=== PATIENT | female | born 1970 | race Caucasian/White ===

== ENCOUNTER → 2017-01-06 | Outpatient (CLI) | payer BC ==
[2017-01-06 13:52] LABS: ALBUMIN 3.6 GM/DL (3.2-5.2); ALBUMIN/GLOBULIN RATIO 1.03 (1.00-1.93); ALKALINE PHOSPHATASE 97 U/L (45-117); ALT/SGPT 20 U/L (12-78); ANION GAP 9 MEQ/L (8-16); AST/SGOT 8 U/L (15-37); BILIRUBIN,TOTAL 0.4 MG/DL (0.2-1.0); BLOOD UREA NITROGEN 12 MG/DL (7-18); CALCIUM LEVEL 9.3 MG/DL (8.5-10.1); CARBON DIOXIDE LEVEL 24 MEQ/L (21-32); CHLORIDE LEVEL 108 MEQ/L (98-107); CHOLESTEROL LEVEL 185 MG/DL (<200); CREATININE FOR GFR 0.79 MG/DL (0.55-1.02); FREE T4 0.99 NG/DL (0.76-1.46); GLOMERULAR FILTRATION RATE > 60.0 (>58); GLUCOSE, FASTING 89 MG/DL (70-105); POTASSIUM SERUM 4.6 MEQ/L (3.5-5.1); SODIUM LEVEL 141 MEQ/L (136-145); TOTAL PROTEIN 7.1 GM/DL (6.4-8.2); TRIGLYCERIDES LEVEL 125 MG/DL (<150)
== END ==
LOC: M SMT 08:12
PROVIDERS: ATTEND Physician Assistant
DX: E78.2 Mixed hyperlipidemia (principal)

== ENCOUNTER → 2017-01-13 | Outpatient (CLI) | payer BC ==
[2017-01-15 00:07] LABS: Lyme Disease IgG/IgM Antibodie <0.91 ISR (0.00-0.90); Lyme Disease IgM Ab Quantitati <0.80 index (0.00-0.79)
== END ==
LOC: M SMT 08:36
PROVIDERS: ATTEND Physician Assistant
DX: M25.569 Pain in unspecified knee (principal); F41.1 Generalized anxiety disorder

== ENCOUNTER → 2018-04-20 | Outpatient (CLI) | payer BC | LOC: M WHC 08:04 | DX: Z12.31 Encounter for screening mammogram for malignant neoplasm of breast (principal); Z92.0 Personal history of contraception; Z80.3 Family history of malignant neoplasm of breast; Z80.0 Family history of malignant neoplasm of digestive organs | CPT/HCPCS: 77067 ==

== ENCOUNTER → 2018-04-26 | Outpatient (CLI) | payer BC ==
[2018-04-26 13:39] LABS: ALBUMIN 3.6 GM/DL (3.2-5.2); ALBUMIN/GLOBULIN RATIO 1.09 (1.00-1.93); ALKALINE PHOSPHATASE 112 U/L (45-117); ALT/SGPT 17 U/L (12-78); ANION GAP 9 MEQ/L (8-16); AST/SGOT 11 U/L (7-37); BILIRUBIN,TOTAL 0.4 MG/DL (0.2-1.0); BLOOD UREA NITROGEN 9 MG/DL (7-18); C REACTIVE PROTEIN QUANTITATIV 1.04 MG/DL (0.00-0.30); CALCIUM LEVEL 9.3 MG/DL (8.5-10.1); CARBON DIOXIDE LEVEL 26 MEQ/L (21-32); CHLORIDE LEVEL 106 MEQ/L (98-107); CREATININE FOR GFR 0.62 MG/DL (0.55-1.30); GLOMERULAR FILTRATION RATE > 60.0 (>58); GLUCOSE, FASTING 87 MG/DL (70-100); POTASSIUM SERUM 4.1 MEQ/L (3.5-5.1); RHEUMATOID FACTOR QUANT < 10.0 IU/ML (<15.0); SODIUM LEVEL 141 MEQ/L (136-145); TOTAL PROTEIN 6.9 GM/DL (6.4-8.2)
[2018-04-26 13:44] LABS: ERYTHROCYTE SEDIMENTATION RATE 33 mm/hr (0-20)
[2018-04-26 16:06] LABS: FOLATE > 24.0 NG/ML; VITAMIN B12 LEVEL 364 PG/ML
[2018-04-29 00:08] LABS: ANTINUCLEAR ANTIBODIES DIRECT Negative (Negative); Lyme Disease IgG/IgM Antibodie <0.91 ISR (0.00-0.90); Lyme Disease IgM Ab Quantitati <0.80 index (0.00-0.79)
[2018-04-29 00:08] LABS: CYCLIC CITRULLINATED PEPTIDE 5 units (0-19)
== END ==
LOC: M SMT 10:20
DX: M25.50 Pain in unspecified joint (principal)
CPT/HCPCS: 82746

== ENCOUNTER → 2018-07-22 | Outpatient (REF) | payer BC | LOC: M LAB REF 17:15 | PROVIDERS: ATTEND Physician Assistant | DX: N39.0 Urinary tract infection, site not specified (principal) ==

== ENCOUNTER → 2018-11-15 | Outpatient (CLI) | payer BC ==
[2018-11-15 13:41] LABS: ALBUMIN 3.6 GM/DL (3.2-5.2); ALT/SGPT 24 U/L (12-78); BILIRUBIN,TOTAL 0.4 MG/DL (0.2-1.0); BLOOD UREA NITROGEN 11 MG/DL (7-18); CALCIUM LEVEL 9.3 MG/DL (8.5-10.1); CARBON DIOXIDE LEVEL 29 MEQ/L (21-32); CHLORIDE LEVEL 107 MEQ/L (98-107); CHOLESTEROL LEVEL 191 MG/DL (<200); CHOLESTEROL RISK RATIO 4.547 (<5); CREATININE FOR GFR 0.63 MG/DL (0.55-1.30); FREE T4 0.95 NG/DL (0.76-1.46); GLOMERULAR FILTRATION RATE > 60.0 (>58); GLUCOSE, FASTING 94 MG/DL (70-100); HDL CHOLESTEROL 42 MG/DL (>40); LDL CHOLESTEROL 127 MG/DL (<100); NON-HDL-C 149 MG/DL; POTASSIUM SERUM 4.7 MEQ/L (3.5-5.1); SODIUM LEVEL 141 MEQ/L (136-145); TRIGLYCERIDES LEVEL 110 MG/DL (<150)
== END ==
LOC: M SMT 07:58
PROVIDERS: ATTEND Physician Assistant
DX: E66.8 Other obesity (principal)

== ENCOUNTER → 2018-11-30 | Outpatient (CLI) | payer BC ==
--- NOTE | 2018-11-30 15:53 | REP ---
Lumbar spine five views: Comparison is 02/18/2005. 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 Vertebral body heights, interspacing alignment are unremarkable. The facets and pedicles are unremarkable. The sacroiliac articulations are unremarkable. The the There is no spondylolysis. There is no spondylolisthesis. 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 Otherwise, negative lumbar spine. Electronically Signed by Domo Pulliam MD 11/30/2018 03:45 P
--- NOTE | 2018-11-30 18:03 | REP ---
Bilateral hip series: Four views. History: Bilateral hip pain. Findings: AP and frog-leg views of each hip are presented. Femoral heads are smooth and rounded and hip joint spaces are preserved. Periarticular soft tissues are unremarkable. No erosive changes seen. Impression: No abnormality noted. Electronically Signed by Deo Alexis MD 12/01/2018 07:54 A
--- NOTE | 2018-11-30 18:11 | REP ---
SI joint series: SI joint series: Five views. History: Pain. Findings: Sacroiliac joints are intact bilaterally. No erosive change or sclerosis is seen. No spur formation is seen. An IUD is noted. The visualized bony pelvic ring is intact. Impression: Negative SI joint radiographs. Electronically Signed by Deo Alexis MD 12/01/2018 07:55 A
== END ==
LOC: M WUC 14:19
PROVIDERS: ATTEND Internal Medicine Rheumatology
DX: Q06.9 Congenital malformation of spinal cord, unspecified (principal); M54.5 Low back pain; M25.559 Pain in unspecified hip

== ENCOUNTER → 2019-01-26 | Outpatient (CLI) | payer BC ==
--- NOTE | 2019-01-26 15:14 | REP ---
HISTORY: Slip, trip, stumble with trauma to the fifth digit. Four views of the right foot show a fracture of the mid diaphysis of the proximal phalanx of the fifth digit. There are no additional fractures. IMPRESSION: Fracture fifth digit proximal phalanx. Electronically Signed by Michael Alejo DO 01/27/2019 03:19 P
== END ==
LOC: M SMT 10:42
PROVIDERS: ATTEND Family Medicine
DX: S92.511A Displaced fracture of proximal phalanx of right lesser toe(s), initial encounter for closed fracture (principal); W18.40XA Slipping, tripping and stumbling without falling, unspecified, initial encounter; Y92.9 Unspecified place or not applicable; Y93.9 Activity, unspecified

== ENCOUNTER → 2019-04-22 | Outpatient (REF) | payer BC ==
[2019-04-26 14:27] LABS: HPV HYBRID CAPTURE II Negative (Negative)
== END ==
LOC: M SFHCWAGY 08:42
PROVIDERS: ATTEND Nurse Practitioner Family
DX: Z12.4 Encounter for screening for malignant neoplasm of cervix (principal)
CPT/HCPCS: 87624; G0123

== ENCOUNTER → 2019-04-22 | Outpatient (CLI) | payer BC ==
--- NOTE | 2019-04-22 10:12 | REPMRS ---
Patient History The patient states she had a clinical breast exam in 04/2019. Family history of breast cancer under age 50 and colorectal cancer at age 50 or over in paternal grandmother, prostate cancer at age 50 or over in paternal grandfather. Taking hormonal contraceptives for 9 years. Digital Woman Screen Mammo: April 22, 2019 - Exam #: [id number] Bilateral CC and MLO view(s) were taken. Technologist: Laura Corral, Technologist Prior study comparison: April 20, 2018, bilateral digital woman screen mammo performed at [facility]. April 17, 2017, digital woman screen mammo performed at [facility]. April 10, 2016, digital woman screen mammo performed at [facility]. FINDINGS: The breast tissue is heterogeneously dense. This may lower the sensitivity of mammography. There is a moderate amount of heterogeneously dense fibroglandular tissue which is fairly symmetric. There is no interval development of dominant mass, architectural distortion, or grouped microcalcification typical of malignancy. There has been no change in the appearance of the mammogram from the prior studies. 3-D tomosynthesis shows no additional findings. Assessment: BI-RADS/ACR category 1 mammogram. Negative Mammogram. Recommendation Routine screening mammogram of both breasts in 1 year (for women over age 40). This patient's Lifetime Breast Cancer RIsk is estimated at 14.5 %. This mammogram was interpreted with the aid of an FDA-approved computer-aided dectection system. Electronically Signed By: Christian Alexis MD 04/22/19 [id number]
== END ==
LOC: M WHC 08:10
PROVIDERS: ATTEND Nurse Practitioner Family
DX: Z12.31 Encounter for screening mammogram for malignant neoplasm of breast (principal); Z79.3 Long term (current) use of hormonal contraceptives

== ENCOUNTER 2019-10-24 09:02 | Day surgery (SDC) | payer BC ==
[~2019-10-24] VITALS: Ht 170.2 cm; Wt 95.4 kg
[2019-10-24] MEDS ORDERED: DULO1CAP6 PO (09:08)
[2019-10-24] MEDS ORDERED: ADDE10CA3 PO (09:09)
[2019-10-24] MEDS ORDERED: NS 1,000 ML IV ONE ×2 (09:30→12:30)
[2019-10-24 09:49] LABS: BASO # 0.1 10^3/uL (0.0-0.2); BASO % 0.5 % (0.0-1.0); EOS # 0.1 10^3/uL (0.0-0.5); EOS % 0.7 % (0.0-3.0); HEMATOCRIT 41.7 % (36.0-47.0); HEMOGLOBIN 13.7 g/dl (12.0-15.5); LYMPH # 1.8 10^3/uL (1.5-5.0); LYMPH % 9.9 % (24.0-44.0); MEAN CORPUSCULAR HEMOGLOBIN 30.2 pg (27.0-33.0); MEAN CORPUSCULAR HGB CONC 32.9 g/dl (32.0-36.5); MEAN CORPUSCULAR VOLUME 92.1 fl (80.0-96.0); MONO # 0.8 10^3/uL (0.0-0.8); MONO % 4.4 % (0.0-5.0); NEUTROPHILS # 15.4 10^3/uL (1.5-8.5); NEUTROPHILS % 83.7 % (36.0-66.0); PLATELET COUNT, AUTOMATED 409 10^3/uL (150-450); RED BLOOD COUNT 4.53 10^6/uL (4.00-5.40); WHITE BLOOD COUNT 18.4 10^3/uL (4.0-10.0)
[2019-10-24] MEDS ORDERED: ONDANSETRON 4MG/2ML VIAL IV ONE (10:00)
[2019-10-24] MEDS ORDERED: KETOROLAC 30 MG/ML 1ML VIAL IV ONE (10:00)
[2019-10-24 10:13] LABS: ALBUMIN 3.5 GM/DL (3.2-5.2); BILIRUBIN,DIRECT 0.1 MG/DL (0.0-0.2); BILIRUBIN,TOTAL 0.4 MG/DL (0.2-1.0); TOTAL PROTEIN 6.9 GM/DL (6.4-8.2)
[2019-10-24] MEDS ORDERED: FAMO1TAB25 PO (10:56)
[2019-10-24] MEDS ORDERED: MIRE1IUD IU (10:56)
[2019-10-24] MEDS ORDERED: SUMA50TA2 PO (10:56)
[2019-10-24] MEDS ORDERED: PIPERACILLIN/TAZOBACTAM SOD 3.375 GM in D5W MINI-BAG PLUS 50 ML IV ONE (11:00)
--- NOTE | 2019-10-24 11:18 | REP ---
RIGHT UPPER QUADRANT ULTRASOUND: Real-time sonographic evaluation of the right upper quadrant performed. Multiple gallstones are seen in the gallbladder. There is a stone in the neck of the gallbladder. Patient is tender at that location. There is gallbladder wall thickening and edema, thickness measures 8 mm. No free fluid is seen. Common bile duct is upper limits of normal at 7 mm. Liver and pancreas are grossly unremarkable, not optimally seen due to overlying bowel gas. Right kidney demonstrates no hydronephrosis with normal size 11.0 cm in length. There is a cyst in the upper pole 1.3 cm in diameter. IMPRESSION: Gallstones in the gallbladder with one apparently lodged in the neck of the gallbladder. There is diffuse gallbladder wall thickening and edema. There is no free fluid. Common bile duct is upper limits of normal at 7 mm. The patient is tender at the site of the gallbladder with transducer pressure. I suspect the findings represent cholecystitis. Electronically Signed by Domo Hess MD 10/24/2019 12:18 P
[2019-10-24 13:05] VITALS: BP 134/82
[2019-10-24] MEDS ORDERED: MORPHINE 2 MG/ML 1ML VIAL (J2270) IV PRN (13:30)
[2019-10-24] MEDS ORDERED: KETOROLAC 30 MG/ML 1ML VIAL IV PRN (13:30)
[2019-10-24] MEDS ORDERED: ONDANSETRON 4MG/2ML VIAL IV PRN ×2 (13:30→20:30)
[2019-10-24] MEDS: LR 1,000 ML IV SCH ×2 (14:46→22:05)
[2019-10-24] MEDS ORDERED: fentaNYL 250 MCG/5 ML INJECTION (J3010) As Ordered ONE (15:32)
[2019-10-24] MEDS ORDERED: MIDAZOLAM INJ 2MG/2ML VIAL (J2250 PER 1MG) As Ordered ONE (15:32)
[2019-10-24] MEDS ORDERED: KETOROLAC 60 MG/2 ML VIAL As Ordered ONE (15:33)
[2019-10-24] MEDS ORDERED: propofoL 200 MG/20 ML VIAL As Ordered ONE (15:33)
[2019-10-24] MEDS ORDERED: dexameTHASONE 4 MG/ML 1ML VIAL (J1100 PER 1MG) As Ordered ONE (15:33)
[2019-10-24] MEDS ORDERED: ROCURONIUM BROMIDE 50 MG/5 ML VIAL As Ordered ONE (15:33)
[2019-10-24] MEDS ORDERED: SUGAMMADEX SODIUM 500 MG/5 ML VIAL (BRIDION) As Ordered ONE (15:33)
[2019-10-24] MEDS ORDERED: LIDOCAINE 2% 100MG/5ML SDV (FOR ANES.) As Ordered ONE (15:33)
[2019-10-24] MEDS ORDERED: ONDANSETRON 4MG/2ML VIAL As Ordered ONE (15:33)
[2019-10-24] MEDS: PIPERACILLIN/TAZOBACTAM SOD 3.375 GM in D5W MINI-BAG PLUS 50 ML IV SCH ×2 (16:07→23:50)
--- NOTE | 2019-10-24 16:46 | ECGEPIP ---
[facility] - ED Test Date: 2019-10-24 Pat Name: MARCELO LEDESMA Department: Room: - Gender: Female Corporate Financial Analyst: JCheo : 1970 Requested By: RAY Ribeiro PA-C Order Number: [id number] Reading MD: Lorrie Toscano Measurements Intervals Raymond Rate: 55 P: 18 AL: 197 QRS: 14 QRSD: 101 T: 51 QT: 432 QTc: 416 Interpretive Statements SINUS BRADYCARDIA NO PRIOR Electronically Signed on 10-24-2019 16:46:03 EDT by Lorrie Toscano
[2019-10-24] MEDS ORDERED: BUPIVACAINE HCL 0.25% 30ML VIAL As Ordered ONE (17:35)
[2019-10-24] MEDS ORDERED: PHENYLephrine HCL 500 MCG/5 ML (100MCG/ML) SYRINGE (J2370) As Ordered ONE (18:08)
[2019-10-24] MEDS ORDERED: ePHEDrine SULFATE 25 MG/5 ML(5MG/ML) SYRINGE As Ordered ONE ×2 (18:08→19:56)
[2019-10-24] MEDS ORDERED: ACETAMINOPHEN 1000MG 100ML IV BTL (OFIRMEV) (J0131 PER 10MG) As Ordered ONE (18:15)
[2019-10-24] MEDS ORDERED: fentaNYL 100 MCG/2 ML INJECTION (J3010) IV PRN (20:30)
[2019-10-24] MEDS ORDERED: PERCOCET 5MG/325MG TAB PO PRN (20:30)
[2019-10-24] MEDS ORDERED: LR 1,000 ML IV SCH (20:30)
[2019-10-24] MEDS ORDERED: NORCO, ANEXSIA 5/325MG TABLET (HYDROcodone/ACETAMINOPHEN) PO PRN (20:45)
[2019-10-24] MEDS ORDERED: FAMOTIDINE 20 MG TAB PO SCH (21:00)
[2019-10-24 21:15] VITALS: BP 111/70
[2019-10-24 21:45] VITALS: BP 107/68
[2019-10-24 22:45] VITALS: BP 96/64
[2019-10-24 23:45] VITALS: BP 95/62
[2019-10-25 00:45] VITALS: BP 98/62
[2019-10-25 01:45] VITALS: BP 94/61
[2019-10-25] MEDS: PIPERACILLIN/TAZOBACTAM SOD 3.375 GM in D5W MINI-BAG PLUS 50 ML IV SCH ×2 (05:45→10:07)
[2019-10-25 06:00] VITALS: BP 95/60
[2019-10-25 06:23] LABS: BASO # 0.1 10^3/uL (0.0-0.2); BASO % 0.5 % (0.0-1.0); EOS # 0.3 10^3/uL (0.0-0.5); EOS % 3.1 % (0.0-3.0); HEMATOCRIT 35.4 % (36.0-47.0); LYMPH # 2.2 10^3/uL (1.5-5.0); LYMPH % 19.5 % (24.0-44.0); MEAN CORPUSCULAR HEMOGLOBIN 30.3 pg (27.0-33.0); MEAN CORPUSCULAR HGB CONC 31.9 g/dl (32.0-36.5); MEAN CORPUSCULAR VOLUME 94.9 fl (80.0-96.0); MONO # 0.8 10^3/uL (0.0-0.8); MONO % 7.1 % (0.0-5.0); NEUTROPHILS # 7.6 10^3/uL (1.5-8.5); NEUTROPHILS % 69.3 % (36.0-66.0); RED BLOOD COUNT 3.73 10^6/uL (4.00-5.40)
[2019-10-25] MEDS: ACETAMINOPHEN TAB 650MG DOSE (2X325MG) PO PRN ×2 (06:59)
[2019-10-25] MEDS: LR 1,000 ML IV SCH (06:59)
[2019-10-25 07:03] LABS: HEMOGLOBIN 11.3 g/dl (12.0-15.5); PLATELET COUNT, AUTOMATED 299 10^3/uL (150-450)
[2019-10-25] MEDS ORDERED: DULoxetine 30 MG CAP (CYMBALTA) PO SCH (09:00)
--- NOTE | 2019-10-25 16:09 | RO ---
DATE OF PROCEDURE: 10/24/2019 PREOPERATIVE DIAGNOSIS: Cholelithiasis and acute cholecystitis. POSTOPERATIVE DIAGNOSIS: Cholelithiasis and acute cholecystitis. PROCEDURE PERFORMED: Laparoscopic cholecystectomy. SURGEON: Dr. Blu Rizvi. ANESTHESIA: General. INDICATIONS FOR PROCEDURE: Patient is a 49-year-old woman who presented to the emergency department with a report of severe upper abdominal pain for at least 9 hours accompanied by sensation of chills and vomiting. In the emergency department she was found to have an elevated white blood cell count with tenderness in the right upper quadrant. An ultrasound revealed multiple gallstones with gallbladder wall thickening and tenderness on scanning over the gallbladder all consistent with acute cholecystitis. She is now for laparoscopic cholecystectomy. DESCRIPTION OF OPERATIVE PROCEDURE: The patient was brought to the operating room and placed on the table in a supine position. She was placed under general endotracheal anesthesia. The patient's abdomen was prepped and draped in a sterile fashion. 0.25% Marcaine was infiltrated at each of the trocar sites as needed. A short supraumbilical midline incision was made and deepened into the subcutaneous tissues. A Veress needle was inserted and after positive hanging drop test, the abdomen was insufflated with carbon dioxide gas. The midline fascia was scored with a scalpel and a 12-mm port was placed without difficulty. Initial examination showed a normal-appearing liver. The gallbladder was identified and appeared quite edematous and erythematous. The patient was tilted to a reverse Trendelenburg position and rolled slightly to the left. Two 5 mm ports were placed in the right upper quadrant and a single 5-mm port was placed in the left upper quadrant. The gallbladder was found to be tensely distended and was aspirated using an aspirating needle with return of a large amount of bilious fluid. The gallbladder, though decompressed was still markedly edematous and thick-walled. The gallbladder was grasped and elevated. There were some adhesions to the surrounding omental fat and these were lysed using the cautery. The gallbladder was further elevated and dissection was begun near the gallbladder neck. There appeared to be a large stone in the gallbladder neck. With dissection through the edematous pericholecystic tissues, a small structure was identified arising at the gallbladder neck consistent with the cystic duct and this was doubly clipped and divided. With further dissection, a small artery was identified and this was also clipped and divided. Gallbladder was dissected free from the gallbladder bed using cautery dissection. This was a slow process because of the marked edema as well as the difficulty in manipulating the gallbladder because of the edema and the multiple stones. There was a small bleeding point identified in the gallbladder bed near the proximal body of the gallbladder and this was controlled with the cautery. Once the gallbladder was completely freed from the gallbladder bed, this was placed in an Endopouch and set aside. The right upper quadrant was irrigated and inspected. A few small bleeding points in the gallbladder bed were controlled with the cautery. Final inspection revealed no evidence of bleeding or bile leak. The patient was returned to a flat position. Any spilled blood was suctioned and irrigated. The abdomen was deflated and the trocars were removed. The gallbladder was recovered through the supraumbilical site. Because of the large stones, it was necessary to extend the fascial and skin incisions slightly. The gallbladder was sent for permanent pathology. The fascia in the supraumbilical site was exposed and then closed with interrupted simple sutures of #1-0 Vicryl. The skin incisions were then all closed with buried #4-0 Vicryl and Steri-Strips. Light dressings were applied. The patient tolerated the procedure well without apparent complication. She was awakened in the operating room, extubated and moved to the recovery room in stable condition.
--- NOTE | 2019-10-26 14:14 | IPN ---
DATE: 10/25/2019 HISTORY: The patient is now postoperative day #1 from a laparoscopic cholecystectomy for acute cholecystitis. She was found to have several very large gallstones with a markedly thickened and inflamed gallbladder. There was no significant bile spillage during the procedure. She has done well postop. She has little to no pain this morning and is using no pain medications. Vital signs show that she has been afebrile since surgery. Her pulse is in the 50s and 60s this morning. Blood pressure is borderline low in the upper 90s systolic over the low 60s. She reports no lightheadedness or other symptoms. Intake and Output: She has had a good oral intake since surgery. She is voiding well without difficulty. PHYSICAL EXAMINATION: The patient is lying quietly on the hospital bed. She actually appears quite comfortable. Heart and lung exam is unremarkable. The abdomen shows that her incisions are all dressed with dry dressings with no evidence of blood staining. She has bowel sounds present and the abdomen is soft and without any significant tenderness other than at the incisions. LABORATORY STUDIES: The patient had a CBC with a diff this morning. Her white count yesterday morning was 18,000 and that is down to 11,000 this morning. Hemoglobin of 11 with a hematocrit of 35 and the platelet count is 299,000. Her differential count shows 69% neutrophils, 19% lymphocytes and 7% monocytes. IMPRESSION: The patient is doing very well now one day postop from her laparoscopic cholecystectomy for acute cholecystitis. She appears ready for discharge. PLAN: I discussed with the patient that she should limit her activities for about the next 2 weeks to avoid any strenuous activity. She can pursue all light activities that are comfortable for her. She declines any prescription pain medications and will take [id number] meds if she needs them. She can take a diet as tolerated. I advised her that some people may have difficulties with fatty foods in particular causing bowel habit changes afterwards and she should experiment and see if she has problems. I have asked her to follow up with me in the office in about 2 weeks. She should call sooner if she develops any postoperative problems. She can shower 24 hours after the surgery. She can change the dressings as needed, but should leave the Steri-Strips in place. MIRI
== END 2019-10-25 12:15 | disposition home or self-care (01) ==
LOC: M ED 09:02 → ENRESERV 13:59 → M SDC 15:16 → M MS5PR 15:19 → M SDC 10-25 12:15
PROVIDERS: ATTEND Surgery
DX: K80.10 Calculus of gallbladder with chronic cholecystitis without obstruction (principal); F32.9 Major depressive disorder, single episode, unspecified; Z79.899 Other long term (current) drug therapy
CPT/HCPCS: 36415; 47562; 76705; 80047; 80076; 83690; 84702; 85025; 88304; 93005; 96361; 96365; 96366; 96375; 96376; 99284; J0131; J1100; J1885; J2250; J2270; J2370; J2405; J2543; J3010; U0002

== ENCOUNTER → 2019-11-23 | Outpatient (CLI) | payer BC ==
[~2019-11-23] MED LIST: ADDE10CA3 PO; DULO1CAP6 PO; FAMO1TAB25 PO; MIRE1IUD IU; SUMA50TA2 PO
== END ==
LOC: M LABSMTC 10:16
PROVIDERS: ATTEND Pediatrics
DX: Z03.818 Encounter for observation for suspected exposure to other biological agents ruled out (principal)

== ENCOUNTER → 2020-04-26 | Outpatient (CLI) | payer BC ==
--- NOTE | 2020-05-17 16:20 | REP ---
INDICATION: N64.4 LT BREAST PAIN; N64.4 LEFT BREAST PAIN. Pain in the left axillary region. COMPARISON: Mammography comparison mammography dated April 22, 2019, April 20, 2018, and April 17, 2017. TECHNIQUE: Bilateral CC and MLO) view(s) were taken. FINDINGS: Scattered fibroglandular elements are seen bilaterally. No suspicious or dominant density is seen. No microcalcification or architectural distortion is seen. No worrisome skin change is appreciated. 3-D tomosynthesis shows no additional finding. Today's mammography is unchanged compared to multiple prior exams. No suspicious mammographic finding. The Volpara volumetric breast density pattern is B. Ultrasound exam. Targeted ultrasound was accomplished on a different day at the patient's request, 04/27/2020. Scanning in the area of patient's left breast pain about the 3 o'clock region shows normal stromal elements. No cyst, mass, or architectural distortion is seen. No suspicious ultrasound finding. IMPRESSION: BIRADS/ACR category 1 negative mammographic and sonographic findings.. This patient's Tyrer-Cuzick lifetime breast cancer risk assessment score is 14.3%. This mammogram was interpreted with the aid of an FDA-approved computer-aided detection system. The patient states she had a clinical breast exam in April 2020. The patient letter being requested is M2. RECOMMENDATION: Repeat screening mammography recommended 1 year (for women over 40). <Electronically signed by Christian Alexis > 04/27/20 [id number]
== END ==
LOC: M WHC 08:03
PROVIDERS: ATTEND Nurse Practitioner Family
DX: N64.4 Mastodynia (principal)
CPT/HCPCS: 76642; 77066; G0279

== ENCOUNTER → 2020-04-27 | Outpatient (CLI) | payer BC | LOC: M WHC 10:26 | PROVIDERS: ATTEND Nurse Practitioner Family | DX: N64.4 Mastodynia (principal); Z53.9 Procedure and treatment not carried out, unspecified reason ==

== ENCOUNTER → 2021-03-11 | Outpatient (CLI) | payer BC ==
[~2021-03-11] MED LIST changes: +FAMO10TA50 PO; -FAMO1TAB25 PO
[2021-03-11 12:38] LABS: ALBUMIN 3.2 GM/DL (3.2-5.2); ALT/SGPT 22 U/L (12-78); BILIRUBIN,TOTAL 0.4 MG/DL (0.2-1.0); BLOOD UREA NITROGEN 9 MG/DL (7-18); CALCIUM LEVEL 9.1 MG/DL (8.5-10.1); CARBON DIOXIDE LEVEL 28 MEQ/L (21-32); CHLORIDE LEVEL 108 MEQ/L (98-107); CHOLESTEROL LEVEL 201 MG/DL (<200); CHOLESTEROL RISK RATIO 4.674 (<5); CREATININE FOR GFR 0.61 MG/DL (0.55-1.30); FREE T4 1.01 NG/DL (0.76-1.46); GLOMERULAR FILTRATION RATE > 60.0 (>58); GLUCOSE, FASTING 88 MG/DL (70-100); HDL CHOLESTEROL 43 MG/DL (>40); LDL CHOLESTEROL 134 MG/DL (<100); NON-HDL-C 158 MG/DL; POTASSIUM SERUM 4.6 MEQ/L (3.5-5.1); SODIUM LEVEL 141 MEQ/L (136-145); TOTAL 25(OH) VITAMIN D 22.1 NG/ML (30.0-100.0); TOTAL PROTEIN 6.8 GM/DL (6.4-8.2); TRIGLYCERIDES LEVEL 120 MG/DL (<150)
[2021-03-11 13:28] LABS: HEMOGLOBIN A1c 5.3 %
== END ==
LOC: M WUC 08:42
PROVIDERS: ATTEND Physician Assistant
DX: E78.2 Mixed hyperlipidemia (principal); E66.8 Other obesity; F33.1 Major depressive disorder, recurrent, moderate

== ENCOUNTER → 2021-08-14 | Outpatient (REF) | payer BC | LOC: M SFHCWAGY 13:00 | PROVIDERS: ATTEND Obstetrics & Gynecology | DX: Z12.4 Encounter for screening for malignant neoplasm of cervix (principal) ==

== ENCOUNTER → 2021-08-14 | Outpatient (CLI) | payer BC | LOC: M WHC 08:34 | PROVIDERS: ATTEND Obstetrics & Gynecology | DX: Z12.31 Encounter for screening mammogram for malignant neoplasm of breast (principal) ==

== ENCOUNTER → 2021-08-21 | Outpatient (CLI) | payer BC | LOC: M WHC 09:42 | PROVIDERS: ATTEND Obstetrics & Gynecology | DX: F52.6 Dyspareunia not due to a substance or known physiological condition (principal) ==

== ENCOUNTER → 2021-11-22 | Outpatient (CLI) | payer BC ==
[2021-11-22 12:40] LABS: BASO # 0.1 10^3/uL (0.0-0.2); BASO % 0.5 % (0.0-1.0); EOS # 0.2 10^3/uL (0.0-0.5); EOS % 1.9 % (0.0-3.0); HEMOGLOBIN 14.2 g/dl (12.0-15.5); LYMPH # 2.5 10^3/uL (1.5-5.0); LYMPH % 19.9 % (24.0-44.0); MEAN CORPUSCULAR HGB CONC 31.6 g/dl (32.0-36.5); MEAN CORPUSCULAR VOLUME 94.9 fl (80.0-96.0); MONO # 0.7 10^3/uL (0.0-0.8); MONO % 5.7 % (2.0-8.0); NEUTROPHILS # 9.1 10^3/uL (1.5-8.5); NEUTROPHILS % 71.5 % (36.0-66.0); PLATELET COUNT, AUTOMATED 410 10^3/uL (150-450); RED BLOOD COUNT 4.74 10^6/uL (4.00-5.40); WHITE BLOOD COUNT 12.7 10^3/uL (4.0-10.0)
[2021-11-22 15:19] LABS: ALBUMIN 3.6 GM/DL (3.2-5.2); ALT/SGPT 18 U/L (12-78); BILIRUBIN,TOTAL 0.5 MG/DL (0.2-1.0); BLOOD UREA NITROGEN 10 MG/DL (7-18); CARBON DIOXIDE LEVEL 28 MEQ/L (21-32); CHLORIDE LEVEL 107 MEQ/L (98-107); CHOLESTEROL LEVEL 181 MG/DL (<200); CHOLESTEROL RISK RATIO 4.022 (<5); CREATININE FOR GFR 0.77 MG/DL (0.55-1.30); FOLLICLE STIMULATING HORMONE 6.2 mIU/mL; FREE T4 0.95 NG/DL (0.76-1.46); GLOMERULAR FILTRATION RATE > 60.0 (>58); GLUCOSE, FASTING 83 MG/DL (70-100); HDL CHOLESTEROL 45 MG/DL (>40); LDL CHOLESTEROL 110 MG/DL (<100); LUTEINIZING HORMONE 5.6 mIU/mL; NON-HDL-C 136 MG/DL; POTASSIUM SERUM 4.4 MEQ/L (3.5-5.1); SODIUM LEVEL 140 MEQ/L (136-145); TOTAL 25(OH) VITAMIN D 48.5 NG/ML (30.0-100.0); TOTAL PROTEIN 7.2 GM/DL (6.4-8.2); TRIGLYCERIDES LEVEL 129 MG/DL (<150)
== END ==
LOC: M WUC 08:36
PROVIDERS: ATTEND Physician Assistant
DX: E78.00 Pure hypercholesterolemia, unspecified (principal); E55.9 Vitamin D deficiency, unspecified; F33.1 Major depressive disorder, recurrent, moderate

== ENCOUNTER → 2022-01-05 | Outpatient (CLI) | payer BC ==
[~2022-01-05] MED LIST changes: +BIOT1TAB PO; +NOXI1TAB PO
== END ==
LOC: M LABSMTC 09:34
PROVIDERS: ATTEND Anesthesiology
DX: Z01.812 Encounter for preprocedural laboratory examination (principal); Z20.822 Contact with and (suspected) exposure to COVID-19

== ENCOUNTER 2022-01-09 09:36 | Day surgery (SDC) | payer BC ==
[~2022-01-09] VITALS: Ht 170.2 cm; Wt 93.4 kg
[~2022-01-09 09:36] MED LIST changes: +NS 1,000 ML IV ONE
[2022-01-09] MEDS ORDERED: LIDOCAINE 2% 100MG/5ML SDV (FOR ANES.) As Ordered ONE (10:52)
[2022-01-09] MEDS ORDERED: propofoL 200 MG/20 ML VIAL As Ordered ONE (11:45)
[2022-01-09 11:50] VITALS: BP 127/81
== END 2022-01-09 12:00 | disposition home or self-care (01) ==
LOC: M OPP 09:36
PROVIDERS: ATTEND Surgery
DX: Z12.11 Encounter for screening for malignant neoplasm of colon (principal); Z80.0 Family history of malignant neoplasm of digestive organs; K21.00 Gastro-esophageal reflux disease with esophagitis, without bleeding; G43.909 Migraine, unspecified, not intractable, without status migrainosus; F41.9 Anxiety disorder, unspecified; F32.9 Major depressive disorder, single episode, unspecified; F17.299 Nicotine dependence, other tobacco product, with unspecified nicotine-induced disorders; F90.9 Attention-deficit hyperactivity disorder, unspecified type; Z86.79 Personal history of other diseases of the circulatory system; Z79.899 Other long term (current) drug therapy; Z97.5 Presence of (intrauterine) contraceptive device

== ENCOUNTER → 2022-08-15 | Outpatient (CLI) | payer OTHER ==
[~2022-08-15] MED LIST changes: -NS 1,000 ML IV ONE
[2022-08-15 09:29] LABS: BASO # 0.1 10^3/uL (0.0-0.2); BASO % 0.8 % (0.0-1.0); EOS # 0.2 10^3/uL (0.0-0.5); EOS % 1.9 % (0.0-3.0); HEMATOCRIT 41.2 % (36.0-47.0); HEMOGLOBIN 13.2 g/dl (12.0-15.5); LYMPH % 17.3 % (24.0-44.0); MEAN CORPUSCULAR HEMOGLOBIN 30.2 pg (27.0-33.0); MEAN CORPUSCULAR VOLUME 94.3 fl (80.0-96.0); MONO # 0.6 10^3/uL (0.0-0.8); MONO % 5.2 % (2.0-8.0); NEUTROPHILS # 8.7 10^3/uL (1.5-8.5); NEUTROPHILS % 74.3 % (36.0-66.0); PLATELET COUNT, AUTOMATED 385 10^3/uL (150-450); RED BLOOD COUNT 4.37 10^6/uL (4.00-5.40); WHITE BLOOD COUNT 11.6 10^3/uL (4.0-10.0)
[2022-08-15 09:55] LABS: ERYTHROCYTE SEDIMENTATION RATE 47 mm/hr (0-20)
[2022-08-15 10:03] LABS: TOTAL 25(OH) VITAMIN D 56.5 NG/ML (20.0-100.0)
[2022-08-15 10:07] LABS: FOLATE 21.17 NG/ML (>5.4); VITAMIN B12 LEVEL 241 PG/ML (211-911)
[2022-08-15 10:11] LABS: ALBUMIN 3.3 G/DL (3.2-5.2); ALKALINE PHOSPHATASE 99 U/L (46-116); ALT/SGPT 15 U/L (7.0-40); AST/SGOT 10 U/L (<34); BILIRUBIN,TOTAL 0.4 MG/DL (0.3-1.2); BLOOD UREA NITROGEN 11 MG/DL (9-23); CALCIUM LEVEL 8.8 MG/DL (8.5-10.1); CARBON DIOXIDE LEVEL 28 MMOL/L (20-31); CHLORIDE LEVEL 108 MMOL/L (98-107); CREATININE FOR GFR 0.64 MG/DL (0.55-1.30); GLOMERULAR FILTRATION RATE > 60.0 (>58); GLUCOSE, FASTING 88 MG/DL (60-100); POTASSIUM SERUM 4.4 MMOL/L (3.5-5.1); SODIUM LEVEL 140 MMOL/L (136-145); TOTAL PROTEIN 6.5 G/DL (5.7-8.2)
[2022-08-16 23:10] LABS: ANA (HEP2) Negative (.); IgG P18 AB Absent (.); IgG P23 AB Absent (.); IgG P28 AB Absent (.); IgG P30 AB Absent (.); IgG P39 AB Absent (.); IgG P41 AB Absent (.); IgG P45 AB Absent (.); IgG P66 AB Absent (.); IgG P93 AB Absent (.); IgM P23 AB Absent (.); IgM P39 AB Absent (.); IgM P41 AB Absent (.); LYME IgG WB INTERPRETATION Negative (.); LYME IgM WB INTERPRETATION Negative (.)
== END ==
LOC: M WUC 08:18
PROVIDERS: ATTEND Physician Assistant
DX: R51.9 Headache, unspecified (principal)

== ENCOUNTER → 2022-08-28 | Outpatient (CLI) | payer OTHER | LOC: M WUC 14:01 | PROVIDERS: ATTEND Physician Assistant | DX: M79.671 Pain in right foot (principal) ==

== ENCOUNTER → 2022-09-09 | Outpatient (REF) | payer OTHER | LOC: M SFHCWAGY 13:13 | PROVIDERS: ATTEND Obstetrics & Gynecology | DX: Z01.419 Encounter for gynecological examination (general) (routine) without abnormal findings (principal) | CPT/HCPCS: 87624; G0123 ==

== ENCOUNTER → 2022-09-09 | Outpatient (CLI) | payer OTHER | LOC: M WHC 09:06 | PROVIDERS: ATTEND Obstetrics & Gynecology | DX: Z12.31 Encounter for screening mammogram for malignant neoplasm of breast (principal) ==

== ENCOUNTER 2023-09-02 08:29 | Emergency (ER) | payer OTHER ==
[~2023-09-02] VITALS: Ht 170.2 cm; Wt 98.7 kg
[2023-09-02] MEDS ORDERED: OMEP-173 PO (08:41)
[2023-09-02 09:50] LABS: BASO # 0.1 10^3/uL (0.0-0.2); BASO % 0.6 % (0.0-1.0); EOS # 0.2 10^3/uL (0.0-0.5); EOS % 1.5 % (0.0-3.0); LYMPH # 2.3 10^3/uL (1.5-5.0); LYMPH % 17.5 % (24.0-44.0); MEAN CORPUSCULAR HEMOGLOBIN 30.2 pg (27.0-33.0); MEAN CORPUSCULAR HGB CONC 32.6 g/dl (32.0-36.5); MEAN CORPUSCULAR VOLUME 92.9 fl (80.0-96.0); MONO # 0.6 10^3/uL (0.0-0.8); MONO % 4.8 % (2.0-8.0); NEUTROPHILS # 9.7 10^3/uL (1.5-8.5); NEUTROPHILS % 74.8 % (36.0-66.0); PLATELET COUNT, AUTOMATED 437 10^3/uL (150-450); RED BLOOD COUNT 4.63 10^6/uL (4.00-5.40); WHITE BLOOD COUNT 12.9 10^3/uL (4.0-10.0)
[2023-09-02 09:55] LABS: PROTHROMBIN TIME 12.9 SECONDS (12.5-14.5)
[2023-09-02 11:43] LABS: LIPASE 25 U/L (12-53)
[2023-09-02 11:45] LABS: ALBUMIN 3.6 G/DL (3.2-5.2); ALKALINE PHOSPHATASE 104 U/L (46-116); ALT/SGPT 18 U/L (7.0-40); AST/SGOT 19 U/L (<34); BILIRUBIN,DIRECT 0.1 MG/DL (<0.4); BILIRUBIN,TOTAL 0.4 MG/DL (0.3-1.2); BLOOD UREA NITROGEN 10 MG/DL (9-23); CARBON DIOXIDE LEVEL 25 MMOL/L (20-31); CHLORIDE LEVEL 107 MMOL/L (98-107); CREATININE FOR GFR 0.62 MG/DL (0.55-1.30); GLOMERULAR FILTRATION RATE > 60.0 (>51); GLUCOSE, FASTING 91 MG/DL (60-100); POTASSIUM SERUM 4.3 MMOL/L (3.5-5.1); SODIUM LEVEL 139 MMOL/L (136-145); TOTAL PROTEIN 6.8 G/DL (5.7-8.2)
[2023-09-02 12:05] VITALS: BP 125/86; TEMP 98; O2SAT 96
[2023-09-02] MEDS: IBUPROFEN 800 MG TAB PO ONE (12:05)
== END 2023-09-02 12:07 | disposition home or self-care (01) ==
LOC: M ED 08:29
DX: R04.0 Epistaxis (principal); F41.9 Anxiety disorder, unspecified; F32.A Depression, unspecified; F17.200 Nicotine dependence, unspecified, uncomplicated; Z79.83 Long term (current) use of bisphosphonates; Z79.899 Other long term (current) drug therapy

== ENCOUNTER → 2023-09-17 | Outpatient (CLI) | payer OTHER ==
[~2023-09-17] MED LIST changes: +OMEP-173 PO
== END ==
LOC: M WHC 14:54
PROVIDERS: ATTEND Obstetrics & Gynecology
DX: Z12.31 Encounter for screening mammogram for malignant neoplasm of breast (principal); R92.323 Mammographic fibroglandular density, bilateral breasts

== ENCOUNTER → 2023-09-17 | Outpatient (REF) | payer OTHER | LOC: M SFHCWAGY 14:56 | PROVIDERS: ATTEND Obstetrics & Gynecology | DX: Z01.419 Encounter for gynecological examination (general) (routine) without abnormal findings (principal); Z77.9 Other contact with and (suspected) exposures hazardous to health | CPT/HCPCS: 87624; G0123 ==

== ENCOUNTER → 2024-09-19 | Outpatient (REF) | payer OTHER ==
[2024-09-22 15:07] LABS: HPV APTIMA Not Detected (Not Detected)
== END ==
LOC: M SFHCWAGY 13:04
PROVIDERS: ATTEND Obstetrics & Gynecology
DX: Z12.4 Encounter for screening for malignant neoplasm of cervix (principal); R87.610 Atypical squamous cells of undetermined significance on cytologic smear of cervix (ASC-US)
CPT/HCPCS: 87624; G0123

== ENCOUNTER → 2024-09-19 | Outpatient (CLI) | payer OTHER | LOC: M WHC 08:03 | PROVIDERS: ATTEND Obstetrics & Gynecology | DX: Z12.31 Encounter for screening mammogram for malignant neoplasm of breast (principal); R92.323 Mammographic fibroglandular density, bilateral breasts; R92.1 Mammographic calcification found on diagnostic imaging of breast ==

== ENCOUNTER → 2024-09-26 | Outpatient (CLI) | payer OTHER | LOC: M WHC 13:23 | PROVIDERS: ATTEND Obstetrics & Gynecology | DX: R92.8 Other abnormal and inconclusive findings on diagnostic imaging of breast (principal); R92.1 Mammographic calcification found on diagnostic imaging of breast; R92.321 Mammographic fibroglandular density, right breast ==

== ENCOUNTER → 2024-12-27 | Outpatient (CLI) | payer OTHER ==
[2024-12-27 12:16] LABS: BASO # 0.1 10^3/uL (0.0-0.2); BASO % 0.7 % (0.0-1.0); EOS # 0.3 10^3/uL (0.0-0.5); EOS % 2.2 % (0.0-3.0); LYMPH # 2.3 10^3/uL (1.5-5.0); LYMPH % 17.6 % (24.0-44.0); MONO # 0.6 10^3/uL (0.0-0.8); MONO % 4.4 % (2.0-8.0); NEUTROPHILS # 9.6 10^3/uL (1.5-8.5); NEUTROPHILS % 74.5 % (36.0-66.0); PLATELET COUNT, AUTOMATED 425 10^3/uL (150-450)
[2024-12-27 12:28] LABS: ESTIMATED AVERAGE GLUCOSE 114.0 MG/DL (60-110)
[2024-12-27 12:44] LABS: IRON (FE) 92 UG/DL (50-170); PERCENT SATURATION 28.0 % (13.2-45.0); VITAMIN B12 LEVEL 449 PG/ML (211-911)
[2024-12-27 12:45] LABS: ALT/SGPT 15 U/L (7.0-40); AST/SGOT 14 U/L (<34); CALCIUM LEVEL 9.7 MG/DL (8.5-10.1); CARBON DIOXIDE LEVEL 26 MMOL/L (20-31); CHLORIDE LEVEL 104 MMOL/L (98-107); CHOLESTEROL LEVEL 206 MG/DL (<200); CHOLESTEROL RISK RATIO 4.07 (<5); CREATININE FOR GFR 0.74 MG/DL (0.55-1.30); FREE T4 1.13 NG/DL (0.89-1.76); GLOMERULAR FILTRATION RATE > 90.0 (>51); LDL CHOLESTEROL 131.9 MG/DL (<100); NON-HDL-C 155.5 MG/DL; POTASSIUM SERUM 4.9 MMOL/L (3.5-5.1); SODIUM LEVEL 142 MMOL/L (136-145); TRIGLYCERIDES LEVEL 118 MG/DL (<150)
[2024-12-27 12:46] LABS: ESTRADIOL 58.7 PG/ML; TESTOSTERONE 19 NG/DL (14-76)
[2024-12-27 12:47] LABS: PROGESTERONE 0.29 NG/ML
== END ==
LOC: M PLALAB 08:12
PROVIDERS: ATTEND Physician Assistant
DX: D51.9 Vitamin B12 deficiency anemia, unspecified (principal); K21.9 Gastro-esophageal reflux disease without esophagitis; Z13.220 Encounter for screening for lipoid disorders; Z13.29 Encounter for screening for other suspected endocrine disorder; N95.1 Menopausal and female climacteric states

== ENCOUNTER → 2025-03-15 | Outpatient (REF) | payer OTHER, BC ==
[2025-03-17 15:57] LABS: HPV APTIMA Not Detected (Not Detected)
== END ==
LOC: M SFHCWAGY 13:09
PROVIDERS: ATTEND Obstetrics & Gynecology
DX: Z01.419 Encounter for gynecological examination (general) (routine) without abnormal findings (principal); R87.610 Atypical squamous cells of undetermined significance on cytologic smear of cervix (ASC-US)
CPT/HCPCS: 87624; G0123

== ENCOUNTER → 2025-03-22 | Outpatient (CLI) | payer OTHER, BC | LOC: M WHC 10:42 | PROVIDERS: ATTEND Obstetrics & Gynecology | DX: N63.0 Unspecified lump in unspecified breast (principal); Z53.9 Procedure and treatment not carried out, unspecified reason ==

== ENCOUNTER → 2025-03-23 | Outpatient (CLI) | payer OTHER, BC | LOC: M WHC 08:52 | PROVIDERS: ATTEND Obstetrics & Gynecology | DX: N63.0 Unspecified lump in unspecified breast (principal) ==

== ENCOUNTER → 2025-03-28 | Outpatient (CLI) | payer OTHER | LOC: M WHC 07:36 | PROVIDERS: ATTEND Obstetrics & Gynecology | DX: N63.0 Unspecified lump in unspecified breast (principal) | CPT/HCPCS: 77065; G0279 ==